=== PATIENT | male | born 1990 | race Caucasian/White ===

== ENCOUNTER 2018-06-23 12:31 | Emergency (ER) | payer SELFPAY ==
[~2018-06-23] VITALS: Ht 170.2 cm; Wt 72.7 kg
[2018-06-23] MEDS ORDERED: BACT800T5 PO (15:28)
[2018-06-23] MEDS ORDERED: BACTRIM 160MG/800MG DS TAB PO ONE (15:30)
[2018-06-23 15:45] VITALS: BP 127/66
== END 2018-06-23 15:46 | disposition home or self-care (01) ==
LOC: M ED 12:31
DX: L03.115 Cellulitis of right lower limb (principal); L03.116 Cellulitis of left lower limb; L27.1 Localized skin eruption due to drugs and medicaments taken internally; Z87.891 Personal history of nicotine dependence

== ENCOUNTER 2025-03-14 16:03 | Emergency (ER) | payer SELFPAY ==
[~2025-03-14] VITALS: Ht 170.2 cm; Wt 66.8 kg
[~2025-03-14 16:03] MED LIST: BACT800T5 PO
[2025-03-14 19:15] VITALS: BP 136/60; TEMP 98.6; O2SAT 98
== END 2025-03-14 19:18 | disposition home or self-care (01) ==
LOC: M ED 16:03
DX: S61.210A Laceration without foreign body of right index finger without damage to nail, initial encounter (principal); W25.XXXA Contact with sharp glass, initial encounter; Y92.009 Unspecified place in unspecified non-institutional (private) residence as the place of occurrence of the external cause; Y93.89 Activity, other specified; Y99.9 Unspecified external cause status; Z79.2 Long term (current) use of antibiotics